=== PATIENT | male | born 1955 | race American Indian/Alaskan Native ===

== ENCOUNTER 2019-07-18 12:48 | Emergency (ER) | payer OTHER ==
[2019-07-18 13:09] VITALS: BP 151/80; PULSE 115; TEMP 97.5; BMI 24.4
[2019-07-18] MEDS ORDERED: SODIUM CHLORIDE 1,000 ML IV STA (13:25)
[2019-07-18] MEDS ORDERED: KETOROLAC TROMETHAMINE 30 MG/1 ML VIAL IVPUSH ONE (13:25)
[2019-07-18] MEDS ORDERED: KETOROLAC TROMETHAMINE 30 MG/1 ML VIAL ONE (14:13)
--- NOTE | 2019-07-18 14:29 | PDOC ---
History of Present Illness - General History Source: Patient Exam Limitations: No Limitations - History of Present Illness Travel History: No Initial Comments: 07/18/19 14:23 63-year-old male presents the ED with complaints of right upper quadrant pain intermittently for the past few days. Patient has not seen a provider for the above and does not have a PCP but was told by a family friend doctor to go to the nearest ER. Patient denies fever, chills, nausea medical problems, alcohol abuse presently but states history of smoking. Timing/Duration: reports: intermittent Quality: reports: moderate, fullness Abdominal Pain Onset Location: reports: RUQ Pain Radiation: reports: no radiation Activities at Onset: reports: none Aggravating Factors: improves with: None Alleviating Factors: improves with: None <Jennifer Noble - Last Filed: 07/18/19 15:38> <Brionna Lee - Last Filed: 07/28/19 10:00> - General Chief Complaint: Pain Stated Complaint: ABD PAIN Time Seen by Provider: 07/18/19 12:57 Past History - Travel Traveled outside of the country in the last 30 days: No Close contact w/someone who was outside of country & ill: No - Past Medical History COPD: No - Psycho Social/Smoking Cessation Hx Smoking History: Unknown if ever smoked Hx Alcohol Use: No Drug/Substance Use Hx: No Patient Lives Alone: Yes Lives with/in: lives alone <Jennifer Noble - Last Filed: 07/18/19 15:38> <Brionna Lee - Last Filed: 07/28/19 10:00> - Past Medical History Allergies/Adverse Reactions: Allergies Allergy/AdvReac Type Severity Reaction Status Date / Time No Known Allergies Allergy Verified 07/18/19 13:09 Home Medications: Ambulatory Orders NK [No Known Home Medication] 07/18/19 Review of Systems - Review of Systems Able to Perform ROS?: Yes Constitutional: No: Symptoms Reported HEENTM: No: Symptoms Reported Respiratory: No: Symptoms reported Cardiac (ROS): No: Symptoms Reported ABD/GI: Yes: Other : No: Symptoms Reported Musculoskeletal: No: Symptoms Reported Integumentary: No: Symptoms Reported Neurological: No: Symptoms reported <Jennifer Noble - Last Filed: 07/18/19 15:38> *Physical Exam - Vital Signs Last Vital Signs Temp Pulse Resp BP Pulse Ox 97.5 F L 115 H 16 151/80 100 07/18/19 12:48 07/18/19 12:48 07/18/19 12:48 07/18/19 12:48 07/18/19 12:48 - Physical Exam General Appearance: Yes: Nourished, Appropriately Dressed. No: Apparent Distress HEENT: negative: Pale Conjunctivae Neck: positive: Supple Respiratory/Chest: positive: Lungs Clear, Normal Breath Sounds. negative: Respiratory Distress, Accessory Muscle Use Cardiovascular: positive: Regular Rhythm, Tachycardia. negative: Murmur Gastrointestinal/Abdominal: positive: Normal Bowel Sounds, Soft, Tenderness ( Right upper quadrant with deep palpation). negative: Distended, Guarding, Hernia, Mass, Hepatomegaly Musculoskeletal: negative: CVA Tenderness Extremity: positive: Normal Inspection Integumentary: positive: Normal Color, Warm, Moist, Rash (Over right upper quadrant and right chest) Neurologic: positive: Motor Strength 5/5 (Ambulatory) <Jennifer Noble - Last Filed: 07/18/19 15:38> - Vital Signs Last Vital Signs Temp Pulse Resp BP Pulse Ox 97.5 F L 115 H 16 151/80 100 07/18/19 12:48 07/18/19 12:48 07/18/19 12:48 07/18/19 12:48 07/18/19 12:48 <Brionna Lee - Last Filed: 07/28/19 10:00> ED Treatment Course - LABORATORY CBC & Chemistry Diagram: 07/18/19 14:00 07/18/19 14:00 - RADIOLOGY Radiology Studies Ordered: Category Date Time Status GALLBLADDER US [US] Stat Ultrasound 07/18/19 14:15 Ordered - Medications Given in the ED: ED Medications Discontinued Medications Generic Name Dose Route Start Last Admin Trade Name Freq PRN Reason Stop Dose Admin Ketorolac Tromethamine 30 mg 07/18/19 13:25 07/18/19 14:11 Toradol Injection - IVPUSH 07/18/19 13:26 30 mg ONCE ONE Administration <Jennifer Noble - Last Filed: 07/18/19 15:38> - LABORATORY CBC & Chemistry Diagram: 07/18/19 14:00 07/18/19 14:00 - ADDITIONAL ORDERS Additional order review: 07/18/19 15:10 Urine Culture - Final Urine - Urine Clean Catch Group D Strep Or Entero Coccus 07/18/19 14:00 RBC 5.14 MCV 85.5 MCHC 34.6 RDW 13.5 MPV 8.1 Neutrophils % 73.0 Lymphocytes % 19.6 Monocytes % 5.8 Eosinophils % 0.8 Basophils % 0.8 - Medications Given in the ED: ED Medications Discontinued Medications Generic Name Dose Route Start Last Admin Trade Name Irineo PRN Reason Stop Dose Admin Sodium Chloride 1,000 mls @ 1,000 mls/hr 07/18/19 13:25 07/18/19 14:11 Normal Saline - IV 07/18/19 14:24 1,000 mls/hr ASDIR STA Administration Ketorolac Tromethamine 30 mg 07/18/19 13:25 07/18/19 14:11 Toradol Injection - IVPUSH 07/18/19 13:26 30 mg ONCE ONE Administration <Brionna Lee - Last Filed: 07/28/19 10:00> Medical Decision Making - Medical Decision Making 07/18/19 14:06 Chief complaint: Right upper quadrant pain with no associated symptoms patient not seen by a provider due to lack of a provider exam: Right upper quadrant tenderness with deep palpation noted self-inflicted rash to right abdominal region due to use of turmeric plan: Labs, urine, IV fluids and right upper quadrant ultrasound ordered 07/18/19 15:17 Laboratory Tests 07/18/19 14:00 WBC 9.6 Hgb 15.2 Hct 43.9 Neutrophils % 73.0 Patient went to ultrasound . pending of the labs and urine 07/18/19 15:25 Laboratory Tests 07/18/19 14:00 Sodium 133 L Potassium 4.8 Chloride 102 Carbon Dioxide 24 Anion Gap 8 BUN 8.8 Creatinine 1.0 Random Glucose 237 H Calcium 9.6 Magnesium 1.9 AST 14 L Total Protein 8.5 H Lipase 259 Ultrasound shows a nonvisualization of the pancreatic head likely due to overlying bowel gas. No gallstones identified. Slightly coarse echotexture of the liver that may be artifactual. Please correlate with liver enzymes to rule out mild fatty infiltration. Patient will be given referral to Dr. Donis who is his family friend. 07/18/19 15:38 Laboratory Tests 01/16/20 15:10 Ur Specific [place] 1.009 L Urine Protein 1+ H Urine Ketones 1+ H Urine Blood Negative Ur Leukocyte Esterase Negative Urine WBC (Auto) 1 <Jennifer Noble - Last Filed: 07/18/19 15:38> - Medical Decision Making I reviewed the case with the mid-level practitioner and agree with the mid- level practitioner's assessment, diagnosis and disposition. <Brionna Lee - Last Filed: 07/28/19 10:00> Discharge - Discharge Information Problems reviewed: Yes <Jennifer Noble - Last Filed: 07/18/19 15:38> <Brionna Lee - Last Filed: 07/28/19 10:00> - Discharge Information Clinical Impression/Diagnosis: Abdominal pain Condition: Good Disposition: HOME - Follow up/Referral Referrals: Madi Donis MD [Primary Care Provider] - - Patient Discharge Instructions Patient Printed Discharge Instructions: DI for Abdominal Pain-Adult Additional Instructions: At this time your lab work urine and ultrasound were negative for acute findings. Please follow-up with the primary care physician. - Post Discharge Activity
[2019-07-18 14:46] LABS: BASO % 0.8 % (0-2.0); EOS % 0.8 % (0-4.5); HEMATOCRIT 43.9 % (35.4-49); HEMOGLOBIN 15.2 GM/dL (11.7-16.9); LYMPH % 19.6 % (8-40); MCH 29.6 pg (25.7-33.7); MCHC 34.6 g/dl (32.0-35.9); MEAN CELL VOLUME 85.5 fl (80-96); MEAN PLT VOLUME 8.1 fl (7.5-11.1); MONO % 5.8 % (3.8-10.2); PLATELET COUNT 378 K/MM3 (134-434); RBC 5.14 M/mm3 (4.00-5.60); RDW 13.5 % (11.9-15.9); WHITE BLOOD COUNT 9.6 K/mm3 (4.0-10.0)
[2019-07-18 15:19] LABS: ALBUMIN 4.2 g/dl (3.4-5.0); BILIRUBIN,TOTAL 0.8 mg/dL (0.2-1); BLOOD UREA NITROGEN 8.8 mg/dL (7-18); CALCIUM 9.6 mg/dL (8.5-10.1); MAGNESIUM 1.9 mg/dL (1.8-2.4); POTASSIUM 4.8 mmol/L (3.5-5.1); TOT PROT 8.5 g/dl (6.4-8.2)
[2019-07-18 15:34] LABS: EPI CELLS 0.6 /HPF (0-5/HPF); HYALINE CASTS 2 /lpf (0-8); URINE APPEARANCE CLEAR; URINE BACTERIA 0.3 /hpf (NEGATIVE); URINE BILIRUBIN NEGATIVE (NEGATIVE); URINE COLOR YELLOW; URINE GLUCOSE (UA) NEGATIVE (NEGATIVE); URINE KETONE 1+ (NEGATIVE); URINE LEUK ESTERASE NEGATIVE (NEGATIVE); URINE NITRITE NEGATIVE (NEGATIVE); URINE PROTEIN 1+ (NEGATIVE); URINE RBC 0 /hpf (0-4); URINE UROBILINOGEN 0.2 mg/dL (0.2-1.0); URINE WBC 1 /hpf (0-5)
== END 2019-07-18 15:59 | disposition home or self-care (01) ==
LOC: JER 12:48
DX: R10.9 Unspecified abdominal pain (principal)
CPT/HCPCS: 36415; 76705-TC; 80053; 81003; 83690; 83735; 85025; 87077; 87086; 99283-25